=== PATIENT | male | born 1985 | race Caucasian/White ===

== ENCOUNTER 2016-05-11 11:02 | Emergency (ER) | payer SELFPAY ==
[2016-05-11 11:37] VITALS: BP 156/82
--- NOTE | 2016-05-11 11:52 | UC ---
Back Pain HPI - HPI Summary HPI Summary: 30 y/o male c/o of left shoulder blade, constant "tearing" pain with an occasion spasm triggered by movement. Pain began this morning, patient moved a couch yesterday. Full ROM in the shoulder. - History of Current Complaint Chief Complaint: UCBackPain Stated Complaint: BACK PAIN Time Seen by Provider: 05/11/16 11:41 Hx Obtained From: Patient Timing: Constant Severity Initially: Moderate Severity Currently: Moderate Pain Intensity: 7 Pain Scale Used: 0-10 Numeric Back Pain: Is Discrete @ - Left scapula Character: Sharp, Spasmodic Aggravating: Movement, Lifting Alleviating: Rest, Heat Associated Signs And Symptoms: Positive: Negative - Risk Factors AAA Risk Factors: Negative TAD Risk Factors: Negative Cauda Equina Risk Factors: Negative Epidural Abscess Risk Factors: Negative - Allergies/Home Medications Allergies/Adverse Reactions: Allergies Allergy/AdvReac Type Severity Reaction Status Date / Time Morphine Allergy See Comment Verified 05/11/16 11:32 Home Medications: Home Medications Ibuprofen [Advil] 800 mg PO PRN 05/11/16 [History] PMH/Surg Hx/FS Hx/Imm Hx Previously Healthy: Yes Endocrine History Of: Denies: Diabetes, Thyroid Disease, Hyperthyroidism, Hypothyroidism, Dyslipidemia Cardiovascular History Of: Denies: Cardiac Disorders, Hypertension, Pacemaker/ICD, Myocardial Infarction , Congestive Heart Failure, Atrial Fibrillation, Deep Vein Thrombosis, Bleeding Disorders GI/ History Of: Denies: Gastroesophageal Reflux, Ulcer, Gastrointestinal Bleed, Gall Bladder Disease, Kidney Stones, Diverticulitis, Renal Disease, Urosepsis - Surgical History Surgical History: None - Family History Known Family History: Positive: Unknown - Social History Occupation: Employed Full-time - [employer] Ste[employer] Alcohol Use: None Substance Use Type: None Smoking Status (MU): Current Every Day Smoker Amount Used/How Often: 1/2 ppd Have You Smoked in the Last Year: Yes Cessation Counseling: Patient Advised to Stop Review of Systems Constitutional: Negative Skin: Negative Eyes: Negative ENT: Negative Respiratory: Negative Cardiovascular: Negative Gastrointestinal: Negative Genitourinary: Negative Motor: Decreased ROM - Left shoudler blade, Weakness - Left shoulder blade/ turning the head to the left Musculoskeletal: Decreased ROM - Left shoulder blade Neurological: Negative Psychological: Negative All Other Systems Reviewed And Are Negative: Yes Physical Exam Triage Information Reviewed: Yes Appearance: Well-Appearing Vital Signs: Initial Vital Signs Temp 99.7 F 05/11/16 11:32 Pulse 73 05/11/16 11:32 Resp 16 05/11/16 11:32 BP 156/82 05/11/16 11:32 Pulse Ox 100 05/11/16 11:32 Vital Signs Reviewed: Yes Eye Exam: Normal Eyes: Positive: Conjunctiva Clear ENT Exam: Normal ENT: Positive: Normal ENT inspection, Hearing grossly normal, Pharynx normal, TMs normal Dental Exam: Normal Neck exam: Normal Respiratory Exam: Normal Respiratory: Positive: Chest non-tender, Lungs clear Cardiovascular Exam: Normal Cardiovascular: Positive: RRR, No Murmur Abdominal Exam: Normal Abdomen Description: Positive: Nontender, No Organomegaly, Soft Bowel Sounds: Positive: Present Musculoskeletal: Positive: ROM Intact - Left shoulder/arm, Strength Limited @ - Turning the neck to the left shoulder r/t pain/spasm, Edema @ - Left scapula, Other: - Spasm triggered when palpating the left scapula Neurological: Positive: Alert Psychological Exam: Normal Skin Exam: Normal Back Pain Course/Dx - Differential Dx/Diagnosis Provider Diagnoses: Upper back muscle strain. upper back muscle spasm Discharge - Discharge Plan Condition: Stable Disposition: HOME Prescriptions: Cyclobenzaprine TAB* [Flexeril TAB*] 10 mg PO TID PRN #15 tab PRN Reason: Pain Naproxen Sodium 500 mg PO BID #20 tab Patient Education Materials: Muscle Spasm (ED) Forms: *Work Release Additional Instructions: Submerge the area in warm eposum salt baths in 2 days. Ice the area after work, and for the next two days. Take Naproxen in the morning and at night x 5 days. Use flexeril as needed for muscle spasm
== END 2016-05-11 12:29 | disposition home or self-care (01) ==
LOC: UCCORT 11:02
DX: S29.012A Strain of muscle and tendon of back wall of thorax, initial encounter (principal); X50.0XXA Overexertion from strenuous movement or load, initial encounter; Y93.89 Activity, other specified; Y92.9 Unspecified place or not applicable; M62.830 Muscle spasm of back; Z88.5 Allergy status to narcotic agent; F17.210 Nicotine dependence, cigarettes, uncomplicated
CPT/HCPCS: 99202; G0463